=== PATIENT | male | born 1995 | race Caucasian/White ===

== ENCOUNTER 2019-03-24 10:28 | Emergency (ER) | payer OTHER ==
[~2019-03-24] VITALS: Ht 175.3 cm; Wt 68.5 kg
[2019-03-24 10:30] VITALS: BP 114/63
--- NOTE | 2019-03-24 10:33 | NUR ---
PT ABULATED TO LOBBY WITH STEADY GAIT.
--- NOTE | 2019-03-24 12:15 | NUR ---
TO ED 01, AMBULATORY.
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
[2019-03-24] MEDS: IBUPROFEN 600 MG TAB PO ONE (12:45)
[2019-03-24] MEDS: ACETAMINOPHEN 325 MG TAB PO ONE (12:46)
[2019-03-24 13:02] VITALS: BP 118/68
== END 2019-03-24 13:01 | disposition home or self-care (01) ==
LOC: MED 10:28
DX: S00.33XA Contusion of nose, initial encounter (principal); V09.9XXA Pedestrian injured in unspecified transport accident, initial encounter; Y93.89 Activity, other specified; Y92.89 Other specified places as the place of occurrence of the external cause; Y99.8 Other external cause status
CPT/HCPCS: 70160; 99283